=== PATIENT | female | born 1935 | race Two or more races ===

== ENCOUNTER 2021-01-01 10:28 | Emergency (ER) | payer OTHER ==
[~2021-01-01] VITALS: Ht 152.4 cm; Wt 63.5 kg
[2021-01-01] MEDS ORDERED: SYNTHROID100 MCG PO (10:37)
[2021-01-01] MEDS ORDERED: GLUMETZA500 MG PO (10:37)
[2021-01-01] MEDS ORDERED: TOPROL XL50 MG PO (10:38)
[2021-01-01] MEDS ORDERED: AMLODIPINE-OLM1 EAC1 PO (10:39)
== END 2021-01-01 14:03 | disposition home or self-care (01) ==
LOC: ER 10:28
DX: I10 Essential (primary) hypertension (principal)